=== PATIENT | female | born 1995 | race African-American/Black ===

== ENCOUNTER 2018-03-12 22:35 | Emergency (ER) | payer SELFPAY ==
[~2018-03-12] VITALS: Ht 182.9 cm; Wt 100.0 kg
[2018-03-13 02:57] VITALS: BP 116/66
== END 2018-03-13 03:51 | disposition home or self-care (01) ==
LOC: ER 22:35
DX: S82.002A Unspecified fracture of left patella, initial encounter for closed fracture (principal); S81.012D Laceration without foreign body, left knee, subsequent encounter; F12.10 Cannabis abuse, uncomplicated; Z98.890 Other specified postprocedural states; W18.39XA Other fall on same level, initial encounter; Y93.89 Activity, other specified; Y92.89 Other specified places as the place of occurrence of the external cause; Y99.8 Other external cause status
CPT/HCPCS: 99282; Z7610; 99281